=== PATIENT | female | born 1930 | race Caucasian/White ===

== ENCOUNTER 2020-04-08 18:22 | Emergency (ER) | payer MEDICARE ==
[~2020-04-08] VITALS: Ht 165.1 cm; Wt 68.0 kg
[2020-04-08 18:56] LABS: ABSOLUTE LYMPHOCYTES 1.2 thou/uL (0.8-5.3); ABSOLUTE MONOCYTES 0.3 thou/uL (0.0-1.2); ABSOLUTE NEUTROPHILS 3.4 thou/uL (1.6-8.1); BASOPHILS 0.5 %; EOSINOPHILS 0.4 %; HEMATOCRIT 28.4 % (37.0-47.0); HEMOGLOBIN 9.5 gm/dL (12.0-15.0); LYMPHOCYTES 24.4 %; MCH 29.9 pg (26.0-34.0); MCHC 33.3 g/dL (28.0-37.0); MCV 89.9 fL (80.0-100.0); MONOCYTES 6.8 %; MPV 7.4 fl. (7.2-11.1); NUCLEATED RBCS 0 /100WBC; PLATELET COUNT* 159 thou/uL (150-400); POLYS 67.9 %; RBC 3.16 mil/uL (4.20-5.00); RDW-CV 17.4 % (10.5-14.5)
[2020-04-08] MEDS ORDERED: METHOTREXATE 22.5 M1 PO (18:57)
[2020-04-08] MEDS ORDERED: FOLIC ACID1 MG PO (18:57)
[2020-04-08] MEDS ORDERED: LEVO-T100 MCG PO (18:58)
[2020-04-08] MEDS ORDERED: TOPROL XL25 MG PO (19:00)
[2020-04-08] MEDS ORDERED: LISINOPRIL20 MG PO (19:00)
[2020-04-08 19:01] LABS: CALCIUM 8.3 mg/dL (8.5-10.1); CREATININE 1.6 mg/dL (0.6-1.3); POTASSIUM 4.5 mmol/L (3.5-5.1); PROTIME 10.4 Seconds (9.20-11.50)
[2020-04-08] MEDS ORDERED: ZOCOR20 MG PO (19:01)
[2020-04-08] MEDS ORDERED: KLOR-CON 1010 MEQ PO (19:01)
[2020-04-08] MEDS ORDERED: PREVACID30 MG PO (19:03)
[2020-04-08] MEDS ORDERED: VITAMIN D21250 MCG PO (19:04)
[2020-04-08] MEDS ORDERED: AGGRENOX 25 MG1 EACH PO (19:04)
[2020-04-08 19:05] LABS: TOTAL BILIRUBIN 0.5 mg/dL (<0.1-1.0); TOTAL PROTEIN 7.1 g/dL (6.4-8.2)
[2020-04-08 23:45] VITALS: BP 123/62
--- NOTE | 2020-04-09 11:03 | EKG ---
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: GATO : 1930 Requested By: Salvador Davis Order Number: [id number] MD: Norris Acosta Measurements Intervals [place] Rate: 90 P: -72 CA: 191 QRS: -48 QRSD: 95 T: 30 QT: 380 QTc: 465 Interpretive Statements Sinus or ectopic atrial rhythm Left anterior fascicular block Anterior infarct, old No previous ECG available for comparison Electronically Signed On 04-09-2020 11:03:06 [employer] by Norris Acosta [email or web address] <ELECTRONICALLY SIGNED> By: Norris Acosta MD, [facility] 04/09/20 1103 51 51 Norris Acosta MD, [facility] /EPI
== END 2020-04-08 23:45 | disposition short-term general hospital (02) ==
LOC: M.ERS 18:22
PROVIDERS: Family Medicine
DX: R10.84 Generalized abdominal pain (principal); Z20.828 Contact with and (suspected) exposure to other viral communicable diseases; R11.2 Nausea with vomiting, unspecified; R19.7 Diarrhea, unspecified; I10 Essential (primary) hypertension; E78.00 Pure hypercholesterolemia, unspecified; Z90.710 Acquired absence of both cervix and uterus; Z90.49 Acquired absence of other specified parts of digestive tract; Z79.899 Other long term (current) drug therapy; Z79.82 Long term (current) use of aspirin; Z88.6 Allergy status to analgesic agent